=== PATIENT | male | born 1980 | race Two or more races ===

== ENCOUNTER 2020-03-29 23:16 | Emergency (ER) | payer SELFPAY ==
[~2020-03-29] VITALS: Ht 170.2 cm; Wt 86.2 kg
--- NOTE | 2020-03-29 23:33 | NUR ---
Dr. Murrieta at bedside for MSE.
--- NOTE | 2020-03-29 23:45 | NUR ---
Patient discharged to home in stable condition. Written and verbal after care instructions given. Patient verbalizes understanding of instructions. Stressed follow up or return to ER for worsening s/s. Patient ambulated out of ER with steady gait, no acute signs of distress, VSS, all belongings taken.
[2020-03-29 23:46] VITALS: BP 142/86
== END 2020-03-29 23:46 | disposition home or self-care (01) ==
LOC: ER 23:25
DX: K08.89 Other specified disorders of teeth and supporting structures (principal); R06.02 Shortness of breath; T49.6X5A Adverse effect of otorhinolaryngological drugs and preparations, initial encounter; Y92.89 Other specified places as the place of occurrence of the external cause; F41.9 Anxiety disorder, unspecified; G47.30 Sleep apnea, unspecified
CPT/HCPCS: A4663